=== PATIENT | female | born 1980 | race Hispanic/Latino ===

== ENCOUNTER 2017-04-27 14:56 | Emergency (ER) | payer SELFPAY ==
[2017-04-27 15:17] VITALS: BP 122/86; PULSE 94; O2SAT 100
[2017-04-27 15:55] LABS: Collection Type CLEAN CATCH
[2017-04-27 15:56] LABS: ADD URINE CULTURE? NO (NO); Bacteria FEW /HPF (NEGATIVE); Bilirubin NEGATIVE (NEGATIVE); Blood 250 Ery/ul (0-5); COMPLETE URINE MICROSCOPIC? YES; Epithelial Cells FEW /HPF (FEW); Glucose NEGATIVE (NEGATIVE); Leukocyte Esterase NEGATIVE (NEGATIVE); WBC 0-2 /HPF (0-5)
--- NOTE | 2017-04-27 16:11 | ERPHSYRPT ---
- History of Present Illness Time Seen by Provider: 04/27/17 16:05 Source: patient, parts interpreter Exam Limitations: language barrier Patient Subjective Stated Complaint: pt has positvie home test that was postive, and now is having cramping and bleeding. blood only when she wipes Triage Nursing Assessment: pt alert,walked in ,resp easy, skin w/d., tender to lower that radiates to left side Physician History: The patient is a 36-year-old female with last menstrual period of March 21 complaining through an parts interpreter of cramping lower abdominal pain that began today with mild vaginal bleeding that is apparent only when she wipes after using the bathroom. She took 2 home tests that were positive. Her past medical history is unremarkable. Timing/Duration: today Severity: mild Modifying Factors: Improves With: nothing Associated Symptoms: other (cramping) Allergies/Adverse Reactions: No Known Drug Allergies Allergy (Unverified 04/27/17 15:16) Home Medications: No Reportable Medications [No Reported Medications] 04/27/17 [History] Immunizations Up to Date: Yes - Review of Systems Constitutional: No Fever, No Chills Eyes: No Symptoms Ears, Nose, & Throat: No Symptoms Respiratory: No Cough, No Dyspnea Cardiac: No Chest Pain, No Edema, No Syncope Abdominal/Gastrointestinal: Other (cramping) Genitourinary Symptoms: Vaginal Bleeding (mild) Musculoskeletal: No Back Pain, No Neck Pain Skin: No Rash Neurological: No Dizziness, No Focal Weakness, No Sensory Changes Psychological: No Symptoms Endocrine: No Symptoms Hematologic/Lymphatic: No Symptoms Immunological/Allergic: No Symptoms All Other Systems: Reviewed and Negative - Past Medical History Pertinent Past Medical History: No - Past Surgical History Past Surgical History: No - Social History Smoking Status: Never smoker Exposure to second hand smoke: No Drug Use: none Patient Lives Alone: No - Female History Hx Last Menstrual Period: sugust - Nursing Vital Signs Nursing Vital Signs: Initial Vital Signs Temperature 97.8 F 04/27/17 15:09 Pulse Rate 94 H 04/27/17 15:09 Respiratory Rate 16 04/27/17 15:09 Blood Pressure 122/86 04/27/17 15:09 O2 Sat by Pulse Oximetry 100 04/27/17 15:09 Pain Scale Pain Intensity 6 - Physical Exam General Appearance: no apparent distress, alert Eye Exam: PERRL/EOMI, eyes nml inspection Ears, Nose, Throat Exam: normal ENT inspection, TMs normal, pharynx normal, moist mucous membranes Neck Exam: normal inspection, non-tender, supple, full range of motion Respiratory Exam: normal breath sounds, lungs clear, No respiratory distress Cardiovascular Exam: regular rate/rhythm, normal heart sounds, normal peripheral pulses Gastrointestinal/Abdomen Exam: soft, normal bowel sounds, No tenderness, No mass Pelvic Exam: not done Rectal Exam: not done Back Exam: normal inspection, normal range of motion, No CVA tenderness, No vertebral tenderness Extremity Exam: normal inspection, normal range of motion, pelvis stable Neurologic Exam: alert, oriented x 3, cooperative, normal mood/affect, nml cerebellar function, nml station & gait, sensation nml, No motor deficits Skin Exam: normal color, warm, dry, No rash Lymphatic Exam: No adenopathy SpO2 Interpretation: normal SpO2: 100 Oxygen Delivery: Room Air Ordered Tests: Active Orders 24 hr Category Date Time Status Clean Catch Urine Specimen STAT Care 04/27/17 15:24 Active HCG,QUALITATIVE URINE Stat Lab 04/27/17 15:25 Completed UA W/ MICROSCOPIC Stat Lab 04/27/17 15:25 Completed Lab/Rad Data: Laboratory Results 04/27/17 04/27/17 Range/Units 15:25 15:25 Ur Collection Type CLEAN CATCH Urine Color YELLOW (YELLOW) Urine Appearance CLEAR (CLEAR) Urine pH 5.0 (5-6) Ur Specific [place] 1.025 (1.005-1.025) Urine Protein NEGATIVE (Negative) Urine Ketones NEGATIVE (NEGATIVE) Urine Blood 250 (0-5) Jeremiah/ul Urine Nitrite NEGATIVE (NEGATIVE) Urine Bilirubin NEGATIVE (NEGATIVE) Urine Urobilinogen NORMAL (0-1) mg/dL Ur Leukocyte Esterase NEGATIVE (NEGATIVE) Urine Microscopic RBC 2-5 (0-2) /HPF Urine Microscopic WBC 0-2 (0-5) /HPF Ur Epithelial Cells FEW (FEW) /HPF Urine Bacteria FEW (NEGATIVE) /HPF Urine Glucose NEGATIVE (NEGATIVE) mg/dL Urine HCG, Qual POSITIVE (Negative) Specimen Received 04/27/17 1515 - Departure Time of Disposition: 16:13 Departure Disposition: Home Clinical Impression: Threatened spontaneous Condition: Stable Critical Care Time: No Additional Instructions: You are but there is a possibility that you will have spontaneous . Take Tylenol for any cramping pain. If the pain becomes very severe , please return to the ER immediately. Follow-up with your local doctor within a week.
== END 2017-04-27 16:20 | disposition home or self-care (01) ==
LOC: ED 14:56
DX: O20.0 Threatened abortion (principal)
CPT/HCPCS: 81000; 84703; 99283; 99284

== ENCOUNTER 2017-04-29 20:47 | Emergency (ER) | payer SELFPAY ==
[2017-04-29] MEDS ORDERED: Sodium Chloride 0.9% 1000 ML 1,000 ML IV STA (20:55)
--- NOTE | 2017-04-29 21:06 | ERPHSYRPT ---
- History of Present Illness Time Seen by Provider: 04/29/17 20:55 Historian: patient Exam Limitations: clinical condition Physician History: PATIENT IS A -3, PARA-2 -1 LMP 03/23/2017, COMPLAINS OF A LOWER ABDOMINAL PAIN SUPRAPUBIC WITH A HOME POSITIVE TEST. HAS LIGHT VAGINAL BLEEDING, AND ONSET OF INCREASING WEAKNESS. Timing/Duration: day(s) Activities at Onset: none Quality: cramping Abdominal Pain Onset Location: suprapubic Pain Radiation: no radiation Severity of Pain-Max: severe Severity of Pain-Current: severe Associated Symptoms: diaphoresis, other (VAGINAL BLEEDING) Allergies/Adverse Reactions: No Known Drug Allergies Allergy (Unverified 04/29/17 21:22) Home Medications: No Reportable Medications [No Reported Medications] 04/27/17 [History] - Review of Systems Constitutional: No Fever, No Chills Eyes: No Symptoms Ears, Nose, & Throat: No Symptoms Respiratory: No Cough, No Dyspnea Cardiac: No Chest Pain, No Edema, No Syncope Abdominal/Gastrointestinal: Abdominal Pain, Nausea, Vomiting, No Diarrhea Genitourinary Symptoms: Vaginal Bleeding, No Dysuria Musculoskeletal: No Back Pain, No Neck Pain Skin: No Rash Neurological: No Dizziness, No Focal Weakness, No Sensory Changes Psychological: No Symptoms Endocrine: No Symptoms All Other Systems: Reviewed and Negative - Past Medical History Pertinent Past Medical History: No - Past Surgical History Past Surgical History: No - Social History Smoking Status: Never smoker Exposure to second hand smoke: No Drug Use: none Patient Lives Alone: No - Nursing Vital Signs Nursing Vital Signs: Initial Vital Signs Pulse Rate 86 04/29/17 21:14 Respiratory Rate 20 04/29/17 21:14 Blood Pressure 93/59 04/29/17 21:14 O2 Sat by Pulse Oximetry 100 04/29/17 21:14 Pain Scale Pain Intensity 6 - Physical Exam General Appearance: mild distress Eye Exam: PERRL/EOMI Ears, Nose, Throat Exam: normal ENT inspection Neck Exam: normal inspection Respiratory Exam: normal breath sounds, pleural rub Cardiovascular Exam: regular rate/rhythm, normal heart sounds, tachycardia Gastrointestinal/Abdomen Exam: soft, normal bowel sounds, tenderness, other ( MARKED SUPRAPUBIC TENDERNESS WITH GUARDING) Pelvic Exam: cervical motion tenderness, vaginal bleeding (UTERINE SIZE 6-8 WEEKS GESTATION, CERVIX OS DILATED 1 CM), uterine tenderness Extremity Exam: normal inspection Neurologic Exam: alert, oriented x 3, cooperative, normal mood/affect, nml cerebellar function, sensation nml, No motor deficits Skin Exam: pale, other (SLIGHTLY DIAPHORETIC) SpO2 Interpretation: normal SpO2: 99 Ordered Tests: Active Orders 24 hr Category Date Time Status Clean Catch Urine Specimen STAT Care 04/29/17 20:55 Active IV Insertion STAT Care 04/29/17 20:55 Active IV Insertion-2nd Peripheral STAT Care 04/29/17 21:13 Active Re-Check Vital Signs STAT Care 04/29/17 20:55 Active BMP Stat Lab 04/29/17 21:00 Completed CBC W DIFF Stat Lab 04/29/17 21:00 Completed HCG QUALITATIVE,SERUM Stat Lab 04/29/17 21:00 Completed HCG, Quantitative (Inhouse) Stat Lab 04/29/17 20:50 Received Lactic Acid Stat Lab 04/29/17 21:10 Results UA W/RFX UR CULTURE Stat Lab 04/29/17 20:56 Ordered Medication Summary Generic Name Dose Route Start Last Admin Trade Name Freq PRN Reason Stop Dose Admin Sodium Chloride 1,000 mls @ 999 mls/hr 04/29/17 20:55 Sodium Chloride 0.9% 1000 Ml IV 04/29/17 21:55 .Q1H1M STA Lab/Rad Data: Laboratory Result Diagrams 04/29/17 21:00 04/29/17 21:00 Laboratory Results 04/29/17 04/29/17 04/29/17 Range/Units 21:10 21:00 21:00 WBC (4.0-10.5) K/mm3 RBC (4.1-5.4) M/mm3 Hgb (12.0-16.0) gm/dl Hct (35-47) % MCV (78-100) fl MCH (26-32) pg MCHC (32-36) g/dl RDW (11.5-14.0) % Plt Count (150-450) K/mm3 MPV (6-9.5) fl Gran % (36.0-66.0) % Lymphocytes % (24.0-44.0) % Monocytes % (0.0-12.0) % Eosinophils % (0.00-5.0) % Basophils % (0.0-0.4) % Basophils # (0-0.4) Sodium 140 (136-145) mEq/L Potassium 4.1 (3.5-5.1) mEq/L Chloride 105 (98-107) mEq/L Carbon Dioxide 21.0 (21-32) mEq/L Anion Gap 18.0 H (5-15) MEQ/L BUN 17 (9-20) mg/dL Creatinine 0.86 (0.55-1.30) mg/dl Estimated GFR > 60 ML/MIN Glucose 146 H (70-110) MG/DL Lactic Acid 2.7 H (0.4-2.0) Calcium 8.9 (8.5-10.1) mg/dL Serum , Qual POSITIVE (Negative) 04/29/17 Range/Units 21:00 WBC 12.3 H (4.0-10.5) K/mm3 RBC 3.32 L (4.1-5.4) M/mm3 Hgb 10.3 L (12.0-16.0) gm/dl Hct 31.2 L (35-47) % MCV 94.0 (78-100) fl MCH 31.0 (26-32) pg MCHC 33.0 (32-36) g/dl RDW 12.2 (11.5-14.0) % Plt Count 289 (150-450) K/mm3 MPV 9.2 (6-9.5) fl Gran % 88.8 H (36.0-66.0) % Lymphocytes % 7.4 L (24.0-44.0) % Monocytes % 3.6 (0.0-12.0) % Eosinophils % 0.0 (0.00-5.0) % Basophils % 0.2 (0.0-0.4) % Basophils # 0.03 (0-0.4) Sodium (136-145) mEq/L Potassium (3.5-5.1) mEq/L Chloride (98-107) mEq/L Carbon Dioxide (21-32) mEq/L Anion Gap (5-15) MEQ/L BUN (9-20) mg/dL Creatinine (0.55-1.30) mg/dl Estimated GFR ML/MIN Glucose (70-110) MG/DL Lactic Acid (0.4-2.0) Calcium (8.5-10.1) mg/dL Serum , Qual (Negative) - Progress Progress: improved Progress Note: 04/29/17 21:40 PATIENT HYDRATED WITH 2 LITERS NORMAL SALINE BILATERAL 16 GA IV OVER 30 MINUTES BP 102/74, NO IN HOUSE ULTRASOUND 04/29/17 21:42 Discussed with : Other (DISCUSSED WITH DR WHITLEY AT 2115 ACCEPTS TRANSFER TO [facility]IA [facility]) - Departure Time of Disposition: 21:40 Departure Disposition: Transfer Clinical Impression: ACUTE ABDOMEN , ECTOPIC Condition: Stable Critical Care Time: No Referrals: DOCTOR,NO FAMILY [Primary Care Provider] -
[2017-04-29 21:08] LABS: BASOPHIL % 0.2 % (0.0-0.4); Granulocytes % 88.8 % (36.0-66.0); Lymphocytes % 7.4 % (24.0-44.0); Mean Platelet Volume 9.2 fl (6-9.5); Monocytes % 3.6 % (0.0-12.0); Platelet Count 289 K/mm3 (150-450); Red Blood Count 3.32 M/mm3 (4.1-5.4); Red Cell Distribution Width 12.2 % (11.5-14.0); White Blood Count 12.3 K/mm3 (4.0-10.5)
[2017-04-29 21:12] LABS: Lactic Acid 2.7 (0.4-2.0)
[2017-04-29 21:19] LABS: BLOOD UREA NITROGEN 17 mg/dL (9-20); CHLORIDE 105 mEq/L (98-107); Glucose 146 MG/DL (70-110); Potassium 4.1 mEq/L (3.5-5.1); SODIUM 140 mEq/L (136-145)
[2017-04-29 21:31] VITALS: BP 102/70; PULSE 104
[2017-04-29] MEDS ORDERED: Sodium Chloride 0.9% 1000 ML 1,000 ML ONE (21:35)
[2017-04-29 21:40] VITALS: O2SAT 99
[2017-04-30] MEDS ORDERED: Sodium Chloride 0.9% 1000 ML 1,000 ML IV STA ×2 (02:41→02:42)
== END 2017-04-29 21:31 | disposition short-term general hospital (02) ==
LOC: ED 20:47
DX: O00.90 Unspecified ectopic pregnancy without intrauterine pregnancy (principal); R10.9 Unspecified abdominal pain
CPT/HCPCS: 36000; 36415; 80048; 83605; 84702; 84703; 85025; 86850; 86900; 86901; 86922; 96360; 99285